=== PATIENT | female | born 2000 | race Two or more races ===

== ENCOUNTER 2024-05-01 18:52 | Emergency (ER) | payer OTHER ==
[~2024-05-01] VITALS: Ht 170.2 cm; Wt 81.6 kg
[2024-05-01] MEDS ORDERED: SPIRONOLACTONE50 MG PO (19:18)
[2024-05-01 21:25] LABS: HEMATOCRIT 39.9 % (36.0-45.00); HEMOGLOBIN 13.7 g/dL (12.0-15.00); MEAN CORPUSCULAR HEMOGLOBIN 33.1 pg (27.00-32.0); MEAN CORPUSCULAR HGB CONC 34.5 g/dl (32.0-36.0); PLATELET COUNT 148 K/uL (150-450); RED BLOOD COUNT 4.15 M/uL (4.00-6.00)
[2024-05-01 21:26] LABS: URINE APPEARANCE Clear; URINE BILIRRUBIN Negative (NEGATIVE); URINE BLOOD Negative; URINE COLOR Yellow; URINE GLUCOSE Negative (NEGATIVE); URINE KETONE 15 (NEGATIVE); URINE LEUKOCYTE Negative; URINE NITRATE Negative; URINE PROTEIN Negative (NEGATIVE)
[2024-05-01 21:31] LABS: URINE EPITHELIAL CELLS 23.2 uL (0.0-38.8); URINE WBC 4.8 uL (0.0-23.2)
[2024-05-01 21:57] LABS: ALBUMIN 4.3 gm/dL (3.4-5.0); ALKALINE PHOSPHATASE 45 U/L (50-136); ALT/SGPT 25 U/L (12-78); ANION GAP 9 (10.0-20.0); AST/SGOT 22 U/L (15-37); BILIRUBIN TOTAL 0.85 mg/dL (0.3-1.2); BLOOD UREA NITROGEN 6 mg/dL (7-18); BUN CREA RATIO 8 (7.0-25.0); CALCIUM 9.3 mg/dL (8.5-10.1); CARBON DIOXIDE 28 mEq/L (21-32); CHLORIDE 107 mmol/L (98-107); CREATININE SERUM 0.76 mg/dL (0.55-1.02); GFR 92.72; GLOBULINA 3.4 G/DL (2.4-3.5); GLUCOSE FASTING 97 mg/dL (65-100); OSMOLALITY SERUM 277 MOSM/KG (275-295); SODIUM 140 mmol/L (136-145); TOTAL PROTEIN 7.7 gm/dL (6.4-8.2)
[2024-05-01 22:02] LABS: HCG QUANTITATIVE < 1 mUI/mL (1-3)
[2024-05-01] MEDS ORDERED: MINERAL OIL 30 ML BLIST.PACK PO ONE (23:30)
[2024-05-01] MEDS ORDERED: LACTULOSE 20 G/30 ML BLIST.PACK PO ONE (23:30)
[2024-05-01] MEDS ORDERED: MAGNESIUM HYDROXIDE 400 MG/5 ML ML PO ONE (23:30)
[2024-05-01] MEDS ORDERED: SURFAK240 M1 PO (23:31)
[2024-05-01] MEDS ORDERED: DICY20TA PO (23:31)
[2024-05-01] MEDS ORDERED: PEPCID AC20 MG PO (23:31)
[2024-05-01] MEDS ORDERED: FLEET BISA10 MG/30 M RECTAL (23:31)
== END 2024-05-01 23:39 | disposition home or self-care (01) ==
LOC: ER 18:54
PROVIDERS: General Practice
DX: K59.00 Constipation, unspecified (principal); Z88.8 Allergy status to other drugs, medicaments and biological substances